=== PATIENT | female | born 1995 | race Caucasian/White ===

== ENCOUNTER 2024-03-01 20:26 | Inpatient (IN) ==
[2024-03-01] MEDS: LACTATED RINGER'S 1,000 ML IV SCH ×2 (21:05→22:20)
--- NOTE | 2024-03-01 22:01 | History & Physical Report ---
Date of Service March 01, 2024 Assessment & Plan (1) with 38 completed weeks gestation: (2) Irregular uterine contractions: Plan: 28-year-old G1, P0 at 38 weeks and 4 days of gestation presenting today with uterine contractions with minimal cervical change, Vital signs stable afebrile, heart rate reassuring, GBS negative, Most likely dehydration from nausea vomiting with pain, large ketones in urine, seems to be better with IV fluid hydration, Plan to monitor, IV hydration and pain medication and reevaluate, All questions were answered. History of Present Illness Chief Complaint: Contractions Primary Care Provider: Maylin Kyle patient is a 28-year-old G1, P0 at 38 weeks and 4 days of gestation who has been feeling contractions since early this morning when she presented to labor and delivery and her contractions were every 30 minutes and her cervix was 1 to 2 cm and she was sent home after ambulation for 1 hour. She states contractions get more regular and closer over time and they started coming every 2 minutes and painful, will make her cry when they come. She denies leakage of fluid or vaginal bleeding. She reports good movements. When she first came to labor and delivery her nurseNissa checked her and her cervix was 2 to 3 cm, 80% effaced -2 station. Her urine dip had large ketones and it was dark concentrated. Patient states she has been trying to eat and drink all but she has been vomiting due to nausea with contractions. She was started on IV fluids and half of the 1 L bag and is in already. She thinks contractions spaced out to every 4 minutes and pain level is 5 out of 10 now. It was 7-8 out of 10 when she first came. I checked her cervix and it is unchanged since last exam tonight. I offered her either ambulation versus continue IV hydration and pain medication to relax and sleep and then reevaluate in about 2 hours. She prefers to have IV hydration and pain medication due to being painful all day and she wants to take rest before actual labor starts. her has been uncomplicated, GBS negative Allergies Allergy/AdvReac Type Severity Reaction Status Date / Time No Known Allergies Allergy Verified 02/29/24 04:08 Home Medications Medication Instructions Recorded Confirmed Type docusate sodium 100 mg capsule 100 mg PO DAILY 02/29/24 03/01/24 History (Colace) doxylamine succinate 25 mg tablet 25 mg PO HS PRN Constipation 02/29/24 03/01/24 History (Unisom (doxylamine)) ferrous sulfate 325 mg (65 mg 325 mg PO DAILY 02/29/24 03/01/24 History iron) tablet (iron) magnesium 200 mg tablet 400 mg PO DAILY 02/29/24 03/01/24 History omeprazole 20 mg capsule,delayed 20 mg PO DAILY 02/29/24 03/01/24 History release polyethylene glycol 3350 17 gram 17 g PO DAILY 02/29/24 03/01/24 History oral powder packet (Miralax) [id number] 1 mg 1 tab PO DAILY 02/29/24 03/01/24 History tablet Patient History Medical History Surgical History History of appendectomy History of appendectomy 2019 Social History Smoking Status: Never smoker Hx Alcohol Use: No Hx Substance Use: No Preferred Language: Vietnamese Communication Ability: Effective [employer] Internship Required: No Beliefs That Will Affect Care: None marital status: Current Living Situation: Spouse and Family Current Living Situation Comment: House with and 2 stepkids Feels Safe at Home: Yes Safety Concerns: Feels Safe At This Time Assistive Devices: Glasses Review of Systems as per Subjective / HPI Physical Exam Constitutional: WD/WN, vitals as above well developed, well nourished and + acute distress ( Mild distress with contractions, seems better than before when she called) Cont'd: She was crying on the phone about 2 hours ago Genitourinary: normal external appearance OB Exam Abdomen: + vertex Manual OB Exam: + cervical dilation 2 cm, + cervical effacement 80% and + station -2 OB Exam Monitor Tracing: + external uterine monitor used ( contractions every 4 to 6 minutes) and + category I Results & Data Vital Signs (Past 12 Hours) Vital Signs Temp Pulse Resp BP 03/01/24 20:35 36.8 C 89 18 118/68 03/01/24 20:35 36.8 C 89 18 118/68
[2024-03-01] MEDS: BUTORPHANOL TARTRATE 2 MG/ML VIAL IV PRN (22:27)
[2024-03-01] MEDS ORDERED: LIDOCAINE 1% LOCAL 20 ML VIAL INFIL PRN (23:07)
[2024-03-01 23:47] LABS: Hematocrit (blood only) 37.1 % (37.0-47.0); Hemoglobin 12.4 g/dl (12.0-16.0); Mean Corpuscular Hemoglobin 31.6 pg (25.0-34.0); Mean Corpuscular Hgb Conc 33.4 g/dL (32.0-36.0); Mean Corpuscular Volume 94.4 fL (80.0-100.0); Platelet Count 165 K/uL (130-400); RDW Coefficient of Variation 14.2 % (11.5-14.5); RDW Standard Deviation 48.5 fL (36.4-46.3); Red Blood Count 3.93 M/uL (4.20-5.40)
[2024-03-01] MEDS ORDERED: SODIUM CHLORIDE 0.9% PF INJ 10 ML VIAL EPI PRN (23:50)
[2024-03-01] MEDS ORDERED: BUPIVACAINE 0.25% PF 30 ML VIAL EPI PRN (23:50)
[2024-03-01] MEDS ORDERED: diphenhydrAMINE 50 MG/ML VIAL IV PRN (23:50)
[2024-03-01] MEDS ORDERED: fentaNYL citrate PF 100 MCG/2 ML VIAL EPI PRN (23:50)
[2024-03-01] MEDS ORDERED: BUPIVACAINE 0.25% PF 30 ML VIAL EPI STA (23:50)
[2024-03-01] MEDS ORDERED: NALBUPHINE HCL INJ 10 MG/ML AMP IV PRN (23:50)
[2024-03-01] MEDS ORDERED: ROPIVACAINE 0.5% PF 5 MG/ML 20 ML VIAL EPI PRN (23:50)
[2024-03-01] MEDS ORDERED: ePHEDrine sulfate 50 MG/ML AMP IV PRN (23:50)
[2024-03-01] MEDS ORDERED: SODIUM CHLORIDE 0.9% PF INJ 10 ML VIAL EPI STA (23:50)
[2024-03-01] MEDS ORDERED: NALOXONE HCL 1 MG in SODIUM CHLORIDE 0.9% 1,000 ML IV PRN (23:50)
[2024-03-01] MEDS ORDERED: LIDOCAINE 2% MPF LOCAL 5 ML VIAL EPI PRN (23:50)
[2024-03-01] MEDS ORDERED: NALOXONE HCL 0.4 MG/1 ML VIAL/CARP IV PRN (23:50)
[2024-03-01] MEDS ORDERED: LIDOCAINE 2%/EPINEPHRINE 1:200,000 20 ML PF EPI STA (23:50)
--- NOTE | 2024-03-01 23:50 | Anesthesiology Consultation ---
Date of Service March 01, 2024 Assessment & Plan (1) Encounter for pre-operative examination: Chart Review Chart Review: Patient NOT seen in Pre Admission Testing and Acceptable Risk for Labor Epidural Consults Requested none History Height/Weight Height: 5 ft 8 in Weight: 77.111 kg Allergies Allergy/AdvReac Type Severity Reaction Status Date / Time No Known Allergies Allergy Verified 02/29/24 04:08 Medications Home Medications Medication Instructions Recorded Confirmed Last Taken docusate sodium 100 mg capsule 100 mg PO DAILY 02/29/24 03/01/24 03/01/24 (Colace) doxylamine succinate 25 mg tablet 25 mg PO HS PRN Constipation 02/29/24 03/01/24 03/01/24 (Unisom (doxylamine)) ferrous sulfate 325 mg (65 mg 325 mg PO DAILY 02/29/24 03/01/24 03/01/24 iron) tablet (iron) magnesium 200 mg tablet 400 mg PO DAILY 02/29/24 03/01/24 03/01/24 omeprazole 20 mg capsule,delayed 20 mg PO DAILY 02/29/24 03/01/24 03/01/24 release polyethylene glycol 3350 17 gram 17 g PO DAILY 02/29/24 03/01/24 03/01/24 oral powder packet (Miralax) [id number] 1 mg 1 tab PO DAILY 02/29/24 03/01/24 03/01/24 tablet Active Medications Generic Name Dose Route Start Last Admin Trade Name Freq PRN Reason Stop Dose Admin Butorphanol Tartrate 1 mg 03/01/24 21:55 03/01/24 22:27 Butorphanol Tartrate 2 Mg/Ml Vial IV 03/31/24 21:54 1 mg Q2H PRN Administration Pain Lactated Ringer's 1,000 mls @ 500 mls/hr 03/01/24 22:00 03/01/24 22:20 Lr IV 03/31/24 21:59 500 mls/hr .Q2H DESTINY Administration Past Medical History Medical History Past Surgical History Surgical History History of appendectomy History of appendectomy 2019 Social History Smoking Status: Never smoker Hx Alcohol Use: No Hx Substance Use: No Physical Exam Vital Signs Last Vital Signs Temp 98.1 F 03/01/24 23:00 Pulse 85 03/01/24 23:47 Resp 18 03/01/24 23:00 BP 130/70 03/01/24 23:47 Testing Laboratory Results 03/01/24 23:23
[2024-03-02] MEDS: fentANYL 2 MCG/ML BUPIVacaine 0.125%-NSS 100ML BAG ONE (00:13)
[2024-03-02] MEDS: LIDOCAINE 2%/EPINEPHRINE 1:200,000 20 ML PF ONE ×2 (00:15→11:51)
[2024-03-02] MEDS: BUPIVACAINE 0.25% PF 30 ML VIAL ONE (00:15)
[2024-03-02] MEDS: ePHEDrine sulfate 50 MG/ML AMP ONE (00:16)
[2024-03-02] MEDS: fentaNYL citrate PF 100 MCG/2 ML VIAL ONE (00:16)
[2024-03-02] MEDS: SODIUM CHLORIDE 0.9% PF INJ 10 ML VIAL ONE (00:16)
[2024-03-02] MEDS: LACTATED RINGER'S 1,000 ML IV PRN (00:21)
--- NOTE | 2024-03-02 00:23 | Obstetrical Progress Note ---
Date of Service March 02, 2024 Assessment & Plan Admission and Anticipated Discharge Date Admission Date: March 01, 2024 Subjective Patient received Stadol and was sleeping, then [facility]'ed at 22: 54 and became more painful. Received epidural Still feels pain, awaiting for epidural to work VE; 3/ 90%/-1 FHR Categ I, decreased variability ctxs q 2-3 min Continue to monitor closely Results & Data Vital Signs (Past 12 Hours) Vital Signs Temp Pulse Resp BP Pulse Ox 03/02/24 00:19 94 H 03/02/24 00:19 87 141/83 H 94 03/02/24 00:17 91 H 140/73 98 03/02/24 00:15 88 137/77 03/02/24 00:13 98 H 130/81 03/02/24 00:12 94 03/02/24 00:12 86 03/02/24 00:12 81 93 03/02/24 00:11 80 136/73 03/02/24 00:09 85 132/72 03/02/24 00:07 95 03/02/24 00:07 79 03/02/24 00:07 93 H 93 03/02/24 00:02 97 H 98 03/02/24 00:01 104 H 84 L 03/01/24 23:57 92 H 98 03/01/24 23:47 85 130/70 03/01/24 23:00 18 03/01/24 23:00 36.7 C 18 03/01/24 20:35 36.8 C 89 18 118/68 03/01/24 20:35 36.8 C 89 18 118/68
[2024-03-02] MEDS: fentaNYL citrate PF 100 MCG/2 ML VIAL EPI STA (00:43)
--- NOTE | 2024-03-02 00:49 | Anesthesia Procedure Note ---
Date of Service March 02, 2024 Anesthesia Epidural Re-Dose Vital Signs Temp Pulse Resp BP Pulse Ox 36.7 C 88 18 114/60 97 03/01/24 23:00 03/02/24 00:42 03/01/24 23:00 03/02/24 00:42 03/02/24 00:42 Notes Pain Intensity: 8 Dilatation (cm): 3.0 Effacement (%): 90 Pt was given a cse by dr briscoe. pt was still extremely painful after 30 minutes. she was c/o sharp pain in the lower abdomen. I reviewed Dr. Rush record. he did not given any additional meds after the cse. I decided to see if the patient needed volume to get pain relief. The epidural was re-dosed with the following medications (all medications via epidural route) after negative aspiration of the epidural catheter for CSF/HEME. 5ml 2% lidocaine with epi, and 100 mcg fetanyl via epidural. Pt is now comfortable. After Epidural Re-Dose Mental Status: alert / awake / arousable Pain: improving with treatment Airway Patency, RR, SpO2: stable & adequate BP & HR: stable & adequate
[2024-03-02] MEDS ORDERED: OXYTOCIN 30 UNITS/NSS 30 UNITS/500 ML BAG IV PRN ×2 (00:56→09:54)
[2024-03-02] MEDS: ONDANSETRON INJ 2 MG/ML 2 ML VIAL IV PRN (04:13)
[2024-03-02] MEDS: fentANYL 2 MCG/ML BUPIVacaine 0.125%-NSS 100ML BAG EPI PRN (05:57)
[2024-03-02] MEDS: ceFAZolin 2000MG 2,000 MG/15 ML SYR IV SCH (08:47)
[2024-03-02] MEDS: OXYTOCIN 30 UNITS/NSS 30 UNITS/500 ML BAG IV PRN (09:05)
--- NOTE | 2024-03-02 09:18 | Anesthesia Procedure Note ---
Date of Service March 02, 2024 Anesthesia Post Epidural Note Vital Signs Vital Signs: Temp Pulse Resp BP Pulse Ox 38.0 C H 115 H 18 134/70 89 L 03/02/24 08:55 03/02/24 09:03 03/02/24 08:55 03/02/24 08:57 03/02/24 09:03 Pain Intensity Abdomen: Pain Intensity: 10 Notes Mental Status: alert / awake / arousable Nausea / Vomiting: adequately controlled Pain: adequately controlled Airway Patency, RR, SpO2: stable & adequate BP & HR: stable & adequate Hydration State: stable & adequate Neuraxial Anesthesia: was administered and sensory block is resolving Anesthetic Complications: no major complications apparent Epidural: Removed without complications and With tip intact
--- NOTE | 2024-03-02 09:28 | Delivery Summary ---
Vaginal Delivery Summary Date of Service March 02, 2024 Vaginal Delivery Summary live female GIO over intact perineum with nuchal cord x1 reduced at delivery. Delayed cord clamping and Apgars 8/9 weight pending. Loop of cord obtained for cord gas and cord blood obtained. tachycardia when pushing so will continue IV Ancef 2grams q 8 h for 24 hrs. No tears. QBL 110 ml. Final sponge and instrument count are correct. Mom and baby stable.
[2024-03-02] MEDS ORDERED: HYDROCORTISONE ACETATE 25 MG SUPP PR PRN (09:54)
[2024-03-02] MEDS ORDERED: bisacodyL 10 MG SUPP PR PRN (09:54)
[2024-03-02] MEDS ORDERED: NON-FORMULARY MEDICATION (Doxylamine Succinate [Unisom (Doxylamine)] 25 mg Tablet) PO PRN (09:54)
[2024-03-02] MEDS: IBUPROFEN 600 MG TAB PO PRN (10:07)
[2024-03-02 10:15] LABS: Cord Venous Blood HCO3 21 mmol/L (18.4-26.8); Cord Venous Blood PCO2 44 mmHg (30.4-57.2); Cord Venous Blood PO2 31 mmHg (14.1-43.3); Cord Venous Blood pH 7.28 (7.20-7.44); O2 Saturation Cord Venous Bld 62.7 % (<68)
[2024-03-02] MEDS: BENZOCAINE 20% SPRY 85 APPLN/85 GM CAN EXT PRN (11:06)
[2024-03-02] MEDS: ACETAMINOPHEN 325 MG TAB PO PRN (11:06)
[2024-03-03 06:18] LABS: Hematocrit (blood only) 33.6 % (37.0-47.0); Hemoglobin 11.1 g/dl (12.0-16.0); Mean Corpuscular Hemoglobin 31.4 pg (25.0-34.0); Mean Corpuscular Volume 94.9 fL (80.0-100.0); Mean Platelet Volume 9.1 fL (9.4-12.4); Platelet Count 124 K/uL (130-400); RDW Coefficient of Variation 14.6 % (11.5-14.5); RDW Standard Deviation 50.5 fL (36.4-46.3); Red Blood Count 3.54 M/uL (4.20-5.40); White Blood Count 13.54 K/ul (4.8-10.8)
[2024-03-03 08:04] VITALS: O2SAT 97
[2024-03-03] MEDS: FERROUS SULFATE 325 MG TAB PO SCH ×2 (08:28→08:33)
[2024-03-03] MEDS: PRENATAL VITAMIN 1 TAB PO SCH (08:28)
[2024-03-03] MEDS: DOCUSATE SODIUM 100 MG CAP PO SCH ×2 (08:28→08:33)
[2024-03-03] MEDS: MAGNESIUM OXIDE 400 MG TAB PO SCH (08:29)
[2024-03-03] MEDS: PANTOprazole 40 MG TAB PO SCH (08:29)
[2024-03-03] MEDS: POLYETHYLENE (MIRALAX) 17 GM PACK PO SCH (08:33)
--- NOTE | 2024-03-03 08:56 | Obstetrical Progress Note ---
Date of Service March 03, 2024 Assessment & Plan Admission and Anticipated Discharge Date Admission Date: March 01, 2024 Subjective Patient is seen and examined. She feels well, no complaints. Ambulating without dizziness Voiding without difficulty Tolerating regular diet with out N&V Bleeding is minimal No fever/ chills/ CP/ SOB/ N&V/ Leg pain Breast feeding without problems Lab Results 03/01/24 03/02/24 03/03/24 Range/Units 23:23 Unknown 05:53 WBC 12.70 H 13.54 H (4.8-10.8) K/ul RBC 3.93 L 3.54 L (4.20-5.40) M/uL Hgb 12.4 11.1 L (12.0-16.0) g/dl Hct 37.1 33.6 L (37.0-47.0) % MCV 94.4 94.9 (80.0-100.0) fL MCH 31.6 31.4 (25.0-34.0) pg MCHC 33.4 33.0 (32.0-36.0) g/dL RDW Std Deviation 48.5 H 50.5 H (36.4-46.3) fL RDW Coeff of Geovani 14.2 14.6 H (11.5-14.5) % Plt Count 165 124 L (130-400) K/uL MPV 9.0 L 9.1 L (9.4-12.4) fL Cord VBG pH 7.28 (7.20-7.44) Cord VBG pCO2 44 (30.4-57.2) mmHg Cord VBG pO2 31 (14.1-43.3) mmHg Cord VBG HCO3 21 (18.4-26.8) mmol/L Cord VBG Base Excess -6.0 (-7.7-1.9) mEq/L Cord VBG O2 Sat 62.7 (<68) % Blood Gas Comments INFANT A Treponema pallidum Ab Negative (Negative) Lab Results 03/01/24 03/02/24 03/03/24 Range/Units 23:23 Unknown 05:53 WBC 12.70 H 13.54 H (4.8-10.8) K/ul RBC 3.93 L 3.54 L (4.20-5.40) M/uL Hgb 12.4 11.1 L (12.0-16.0) g/dl Hct 37.1 33.6 L (37.0-47.0) % MCV 94.4 94.9 (80.0-100.0) fL MCH 31.6 31.4 (25.0-34.0) pg MCHC 33.4 33.0 (32.0-36.0) g/dL RDW Std Deviation 48.5 H 50.5 H (36.4-46.3) fL RDW Coeff of Geovani 14.2 14.6 H (11.5-14.5) % Plt Count 165 124 L (130-400) K/uL MPV 9.0 L 9.1 L (9.4-12.4) fL Cord VBG pH 7.28 (7.20-7.44) Cord VBG pCO2 44 (30.4-57.2) mmHg Cord VBG pO2 31 (14.1-43.3) mmHg Cord VBG HCO3 21 (18.4-26.8) mmol/L Cord VBG Base Excess -6.0 (-7.7-1.9) mEq/L Cord VBG O2 Sat 62.7 (<68) % Blood Gas Comments A Treponema pallidum Ab Negative (Negative) PE: General: Alert, orientedx3, NAD Abd: soft, NT, fundus firm, below Umbilicus Perineum intact, Lochia rubra minimal Ext; NT, no edema AP: 28 yo s/p , ppd# 1, maternal fever and tachycardia during second stage of labor, on Cefazolin VSS Afebrile doing well Continue routine care All questions were answered D/C home tomorrow Results & Data Vital Signs (Past 12 Hours) Vital Signs Temp Pulse Resp BP Pulse Ox O2 Del Method 03/03/24 07:00 36.6 C 75 14 114/65 97 Room Air 03/03/24 03:34 36.6 C 72 16 114/68 98 Room Air 03/02/24 22:57 36.6 C 70 16 115/66 96 Room Air
[2024-03-03] MEDS ORDERED: NON-FORMULARY MEDICATION (Prenatal Multivit-Min-Fe-Fa 1 mg Tablet) PO SCH (09:00)
[2024-03-03] MEDS: DIPHTHER/TETAN/PERTUS Vaccine (Tdap, Adol/Adult) 0.5mL IM ONE (15:14)
[2024-03-03] MEDS: bisacodyL 5 MG TABEC PO SCH (20:31)
[2024-03-04 07:25] LABS: Basophils # (auto) 0.03 K/uL (0.00-0.20); Basophils % (auto) 0.3 %; Eosinophils % (auto) 1.2 %; Hemoglobin 10.6 g/dl (12.0-16.0); Immature Granulocytes # (auto) 0.06 K/uL (0.01-0.20); Immature Granulocytes % (auto) 0.7 %; Lymphocytes # (auto) 1.43 K/uL (1.20-3.40); Lymphocytes % (auto) 16.5 %; Mean Corpuscular Hgb Conc 34.2 g/dL (32.0-36.0); Mean Corpuscular Volume 93.7 fL (80.0-100.0); Mean Platelet Volume 9.3 fL (9.4-12.4); Monocytes # (auto) 0.52 K/uL (0.11-0.59); Neutrophils # (auto) 6.54 K/uL (1.40-6.50); Neutrophils % (auto) 75.3 %; Platelet Count 132 K/uL (130-400); RDW Coefficient of Variation 14.4 % (11.5-14.5); RDW Standard Deviation 49.2 fL (36.4-46.3); Red Blood Count 3.31 M/uL (4.20-5.40); White Blood Count 8.68 K/ul (4.8-10.8)
--- NOTE | 2024-03-04 09:29 | Obstetrical Progress Note ---
Date of Service March 04, 2024 Assessment & Plan Admission and Anticipated Discharge Date Admission Date: March 01, 2024 Subjective Patient is seen and examined. She feels well, no complaints. Ambulating without dizziness Voiding without difficulty Tolerating regular diet with out N&V Bleeding is minimal No fever/ chills/ CP/ SOB/ N&V/ Leg pain Breast feeding without problems Vital Signs Temp Pulse Resp BP Pulse Ox O2 Del Method 03/04/24 07:40 18 Room Air 03/04/24 07:30 36.7 C 62 16 126/72 03/04/24 00:12 36.7 C 80 18 120/68 03/03/24 16:00 Room Air 03/03/24 16:00 36.8 C 72 16 126/84 97 Room Air Lab Results 03/01/24 03/02/24 03/03/24 Range/Units 23:23 Unknown 05:53 WBC 12.70 H 13.54 H (4.8-10.8) K/ul RBC 3.93 L 3.54 L (4.20-5.40) M/uL Hgb 12.4 11.1 L (12.0-16.0) g/dl Hct 37.1 33.6 L (37.0-47.0) % MCV 94.4 94.9 (80.0-100.0) fL MCH 31.6 31.4 (25.0-34.0) pg MCHC 33.4 33.0 (32.0-36.0) g/dL RDW Std Deviation 48.5 H 50.5 H (36.4-46.3) fL RDW Coeff of Geovani 14.2 14.6 H (11.5-14.5) % Plt Count 165 124 L (130-400) K/uL MPV 9.0 L 9.1 L (9.4-12.4) fL Immature Gran % (Auto) % Neut % (Auto) % Lymph % (Auto) % [place] % (Auto) % Eos % (Auto) % Baso % (Auto) % Neut # (Auto) (1.40-6.50) K/uL Lymph # (Auto) (1.20-3.40) K/uL [place] # (Auto) (0.11-0.59) K/uL Eos # (Auto) (0.00-0.50) K/uL Baso # (Auto) (0.00-0.20) K/uL Immature Gran # (Auto) (0.01-0.20) K/uL Cord VBG pH 7.28 (7.20-7.44) Cord VBG pCO2 44 (30.4-57.2) mmHg Cord VBG pO2 31 (14.1-43.3) mmHg Cord VBG HCO3 21 (18.4-26.8) mmol/L Cord VBG Base Excess -6.0 (-7.7-1.9) mEq/L Cord VBG O2 Sat 62.7 (<68) % Blood Gas Comments A Treponema pallidum Ab Negative (Negative) 03/04/24 Range/Units 07:00 WBC 8.68 (4.8-10.8) K/ul RBC 3.31 L (4.20-5.40) M/uL Hgb 10.6 L (12.0-16.0) g/dl Hct 31.0 L (37.0-47.0) % MCV 93.7 (80.0-100.0) fL MCH 32.0 (25.0-34.0) pg MCHC 34.2 (32.0-36.0) g/dL RDW Std Deviation 49.2 H (36.4-46.3) fL RDW Coeff of Geovani 14.4 (11.5-14.5) % Plt Count 132 (130-400) K/uL MPV 9.3 L (9.4-12.4) fL Immature Gran % (Auto) 0.7 % Neut % (Auto) 75.3 % Lymph % (Auto) 16.5 % [place] % (Auto) 6.0 % Eos % (Auto) 1.2 % Baso % (Auto) 0.3 % Neut # (Auto) 6.54 H (1.40-6.50) K/uL Lymph # (Auto) 1.43 (1.20-3.40) K/uL [place] # (Auto) 0.52 (0.11-0.59) K/uL Eos # (Auto) 0.10 (0.00-0.50) K/uL Baso # (Auto) 0.03 (0.00-0.20) K/uL Immature Gran # (Auto) 0.06 (0.01-0.20) K/uL Cord VBG pH (7.20-7.44) Cord VBG pCO2 (30.4-57.2) mmHg Cord VBG pO2 (14.1-43.3) mmHg Cord VBG HCO3 (18.4-26.8) mmol/L Cord VBG Base Excess (-7.7-1.9) mEq/L Cord VBG O2 Sat (<68) % Blood Gas Comments Treponema pallidum Ab (Negative) PE: General: Alert, orientedx3, NAD Abd: soft, NT, fundus firm, below Umbilicus Perineum intact, Lochia rubra minimal Ext; NT, no edema AP: 28 yo s/p , ppd# 2 VSS Afebrile doing well Continue routine care All questions were answered D/C home , f/u in office Results & Data Vital Signs (Past 12 Hours) Vital Signs Temp Pulse Resp BP O2 Del Method 03/04/24 07:40 18 Room Air 03/04/24 07:30 36.7 C 62 16 126/72 03/04/24 00:12 36.7 C 80 18 120/68
[2024-03-04 16:37] VITALS: BP 111/68; PULSE 73; RESP 16; TEMP 97.9
== END 2024-03-04 18:50 | disposition home or self-care (01) | DRG 807 ==
LOC: OPB 20:26 → 4S1 20:29 → 4E1 03-02 11:50